=== PATIENT | male | born 1930 | race Caucasian/White ===

== ENCOUNTER 2017-02-22 17:00 | Inpatient (IN) | payer MEDICARE ==
[2017-02-22 18:21] LABS: Troponin I 0.185 ng/mL (< 0.028)
[2017-02-22 21:14] LABS: Troponin I 0.167 ng/mL (< 0.028)
[2017-02-23 00:12] LABS: Troponin I 0.182 ng/mL (< 0.028)
[2017-02-23] MEDS ORDERED: Ondansetron HCl/PF 4 MG/2 ML Vial IVP PRN (01:26)
[2017-02-23] MEDS ORDERED: Ondansetron ODT 4 MG TAB PO PRN (01:26)
[2017-02-23] MEDS ORDERED: cloNIDine 0.1 MG TAB PO PRN (01:26)
[2017-02-23] MEDS ORDERED: Acetaminophen 500 MG TAB PO PRN (01:26)
[2017-02-23] MEDS: Sodium Chloride 0.9% 1,000 ML IV SCH ×3 (02:26→23:36)
--- NOTE | 2017-02-23 03:06 | HP ---
DATE OF ADMISSION: 02/23/2017 PRIMARY CARE PHYSICIAN: Ray Dan DO CHIEF COMPLAINT: Passing out. HISTORY OF PRESENT ILLNESS: This is an 87-year-old male who presents to [facility] and transferred from [facility] after apparently sustaining a sync opal episode with altered mentation. The patient states that he had been outside working with pecans for the whole day, feeling somewhat dizzy over the last several days and some nausea. The patient s tates that his son came to visit him while at home and apparently was unable to respond appropriately to questions and his interaction seemed unusual to the son. The patient was nonresponsive, appearin g glazed over and nonverbal. The patient's symptoms lasted for approximately 30 minutes at which poi nt the patient's daughter decided to have EMS take the patient to [facility] for evaluat ion. The patient underwent general evaluation including CT imaging of the brain showing no acute pro cess. The patient's symptoms had essentially resolved prior to arrival to the emergency room. The p atient admits to some sensation of nausea as well as dizziness and unsteady gait over the last a l days. The patient states that he was recently started on antihypertensive medication within the la st 1-2 weeks by his primary care provider. The patient also states he was placed on pain reliever fo r back pain. The patient has noticed symptoms paralleling the initiation of the blood pressure medic ations. The patient states he had been off all medications over the last 1-2 years with recent resum ption of the medications including the antihypertensive regimen. The patient states he has also plac ed on ciprofloxacin for apparent blood in his urine and concern for possible cystitis. Patient denie s any recent travel history, sick contacts, but does admit to nausea, vomiting, and mild diarrhea. T he patient also admits to decrease oral intake of fluids over the last 24-48 hours. The patient jonathan es any specific chest pain other than pain associated with nausea and vomiting episodes. Patient den ies any specific unilateral weakness, facial droop, asymmetry, or visual disturbance. PAST MEDICAL HISTORY: 1. History of skin cancer. 2. History of acute cholecystitis, status post laparoscopic cholecystectomy. 3. Benign prostatic hyperplasia. 4. Chronic back pain. 5. Hypertension. PAST SURGICAL HISTORY: 1. Status post laparoscopic cholecystectomy. 2. Status post skin cancer excision from the lip. CURRENT MEDICATIONS: 1. Amlodipine/benazepril 5/20 mg 1 tab p.o. daily. 2. Ciprofloxacin 500 mg p.o. b.i.d. 3. Meloxicam 7.5 mg p.o. daily. 4. Flomax 0.4 mg p.o. daily. ALLERGIES: No known drug allergies. FAMILY HISTORY: Positive for hypertension. SOCIAL HISTORY: Patient resides in the [place], [place] area near family members. The patient lives independently, but is monitored by his children who live near the area. The patient denies any curre nt alcohol, tobacco, or illicit drug use. REVIEW OF SYSTEMS: The following complete review of systems was negative, unless otherwise mentioned in the HPI or below: CONSTITUTIONAL: Weight loss or gain, ability to conduct usual activities. SKIN: Rash, itching. EYES: Double vision, pain. ENT/MOUTH: Nose bleeding, neck stiffness, pain, tenderness. CARDIOVASCULAR: Palpitations, dyspnea on exertion, orthopnea. RESPIRATORY: Shortness of breath, wheezing, cough, hemoptysis, fever or night sweats. GASTROINTESTINAL: Poor appetite, abdominal pain, heartburn, nausea, vomiting, constipation, or diarr hea. GENITOURINARY: Urgency, frequency, dysuria, nocturia. MUSCULOSKELETAL: Pain, swelling. NEUROLOGIC/PSYCHIATRIC: Anxiety, depression. ALLERGY/IMMUNOLOGIC: Skin rash, bleeding tendency. PHYSICAL EXAMINATION: VITAL SIGNS: Currently, blood pressure 141/64, pulse 70, respiratory rate 18, temperature 98.3 degre es Fahrenheit, O2 saturation 96% on room air. GENERAL APPEARANCE: This is an 87-year-old male, alert and oriented x3, pleasant, conversa nt, responsive, in no acute distress. HEENT: Pupils are equal, round, and reactive to light and accommodation. Extraocular muscles are in tact. No scleral icterus, no conjunctival injection. Nares patent. OP is clear. Teeth in good rep air. NECK: Supple. No cervical adenopathy, no thyromegaly, no carotid bruits, no JVD appreciated. Cervi david spine with full active and passive range of motion. No meningeal signs appreciated. CHEST: Lungs are clear to auscultation bilaterally. CARDIOVASCULAR: S1, S2, without noted murmur. ABDOMEN: Rounded, soft, nontender, nondistended. Bowel sounds are positive in all four quadrants. There is no hepatosplenomegaly, no abdominal bruits, no rebound or guarding appreciated. EXTREMITIES: Warm and dry with good turgor. No clubbing, cyanosis, or asymmetric edema appreciated. Pulses palpable distally at the dorsalis pedis, posterior tibial, and popliteal arteries bilaterall y. Capillary refill less than 2 seconds. NEUROLOGIC: Cranial nerves II through XII are grossly intact. No focal or lateralizing signs apprec iated. PERTINENT LABORATORY AND X-RAY FINDINGS: Sodium 139, potassium 3.8, chloride 103, CO2 of 21, BUN 31, creatinine 1.77 with estimated GFR 37, previous estimated GFR on 04/02/2015 was 62. Glucose 149, ca lcium 9.0, total bilirubin 2.5, AST 17, ALT 19, alkaline phosphatase 53, total CK of 126. Troponin I ranged between 0.217-0.167, lipase 20. CBC showed a white blood cell count 8.1, hemoglobin 14.6, he matocrit 43, MCV 101, platelet count 128 with 71% neutrophils. Portable chest x-ray dated 02/22/2017 showed no acute cardiopulmonary process. EKG dated 02/22/2017 by my interpretation shows sinus mech anism with heart rates in the 90s. Normal R-wave progression noted in the precordial leads. Normal axis. No acute ST-T wave changes appreciated. ASSESSMENT AND PLAN: 1. Near syncope. The patient will be admitted to the telemetry unit. Exact etiology unclear, likel y multifactorial including dehydration and initiation of recent antihypertensive medication. Check o rthostatic vital signs q.4 hours x2. Hold home antihypertensives. Continue intravenous normal salin e at 100 mL per hour. Serial blood pressure monitoring. 2. Acute kidney injury on chronic kidney disease stage 2. We will continue intravenous normal salin e as outlined previously. Avoid nephrotoxic agents and contrast media. Repeat creatinine in the a.m . 3. Elevated troponin I. Suspect demand ischemia in the context of acute kidney injury. No specific evidence of acute coronary syndrome. Continue troponin I trending q.3 hours x2. 4. Hyperglycemia. Check A1c level in the a.m. No prior history of documented diabetes mellitus typ e 2. 5. Prophylaxis. Sequential compression devices while in bed. Pepcid 20 mg p.o. b.i.d. PT evaluati on in the a.m. 6. Code status is FULL. Surrogate medical decision maker is the patient's daughter,
[2017-02-23 03:47] LABS: Band 1 % (5-11); Hematocrit 38.6 % (42.0-52.0); Mean Platelet Volume 7.7 fL (7.4-10.4); Neutrophil 45 % (42-75); Reactive Lymphocytes 3 % (0-10); Red Blood Cell (RBC) Count 3.72 mill/uL (4.70-6.10); White Blood Cell (WBC) Count 6.5 thou/uL (4.8-10.8)
[2017-02-23 03:52] LABS: Troponin I 0.167 ng/mL (< 0.028)
[2017-02-23 04:03] LABS: Hemoglobin A1c 5.6 % (4.0-6.0)
[2017-02-23 04:04] LABS: Anion Gap 12 mmol/L (10-20); BUN (Urea Nitrogen) 27 mg/dL (8.4-25.7); Calc. Creatinine Clearance 52 mL/min (70-130); Calcium 8.4 mg/dL (7.8-10.44); Carbon Dioxide 25 mmol/L (23-31); Chloride 106 mmol/L (98-107); Estimated GFR-MDRD 56
[2017-02-23 06:49] LABS: Troponin I 0.163 ng/mL (< 0.028)
--- NOTE | 2017-02-23 08:31 | ULT ---
CAROTID ARTERIAL DOPPLER ULTRASOUND: DATE: 02/23/17. COMPARISON: None. HISTORY: Syncope, assess for carotid artery disease. TECHNIQUE: Multiplanar, chavez scale, sonographic imaging of the arterial structures of the neck obtained with col or flow and spectral analysis. FINDINGS: There is atherosclerotic plaque within the proximal ICA bilaterally as well as the distal aspect of t he left CCA. Antegrade blood flow and normal arterial waveforms are documented within the carotid an d vertebral system bilaterally. VESSEL PSV(CM/S) EDV(CM/S) Right CCA 105 9 Right ICA 121 17 Right ECA 231 9 Left CCA 141 18 Left ICA 75 12 Left ECA 160 13 ICA/CCA ratio is 1.2 on the right and 0.5 on the left. IMPRESSION: Elevated velocity within the left common carotid artery correlates with a moderate degree of stenosis (50-69%). This would be best assessed via followup CT angiogram of the neck. POS: [facility]
[2017-02-23] MEDS: Aspirin 81 mg Enteric Coated Tablet PO SCH (08:33)
[2017-02-23] MEDS: Tamsulosin HCl 0.4 MG CAP PO SCH (08:33)
[2017-02-23] MEDS: Famotidine 20 MG TAB PO SCH (08:33)
--- NOTE | 2017-02-23 14:07 | PDOC.EVN ---
Event Note - Event Note Event Note: Chart reviewed. Pt seen. Denies chest pain, shortness of breath. Awaiting 2D echo. No recurrence of syncope. Follow 2D echo report. Troponins trending down, likely due to renal failure. Monitor vital signs and telemetry.
[2017-02-23 16:08] VITALS: BMI 29.8
--- NOTE | 2017-02-24 09:21 | PDOC.PN ---
- Subjective Encounter Start Date: 02/24/17 Encounter Start Time: 09:20 Subjective: feels better. no chest pain.walked in hallways w/o dizziness - Objective Resuscitation Status: Resuscitation Status FULL:Full Resuscitation MAR Reviewed: Yes Vital Signs & Weight: Vital Signs (12 hours) Temp Pulse Resp BP BP BP Pulse Ox 02/24/17 08:00 97.6 F 86 18 160/75 H 97 02/24/17 04:00 98.0 F 50 L 18 162/71 H 95 02/23/17 23:50 98.1 F 58 L 18 160/67 H 97 Weight Admit Weight 187 lb 4.8 oz Weight 188 lb I&O: 02/23/17 02/24/17 02/25/17 06:59 06:59 06:59 Intake Total 590 2420 Output Total 425 2260 Balance 165 160 Result Diagrams: 02/23/17 03:14 02/23/17 03:14 Additional Labs: Laboratory Tests 02/22/17 02/22/17 02/22/17 13:01 17:38 20:42 Creatinine 1.77 H Hemoglobin A1c Troponin I 0.185 H 0.167 H TSH 3rd Generation 02/22/17 02/23/17 02/23/17 23:39 03:14 03:14 Creatinine 1.23 Hemoglobin A1c 5.6 Troponin I 0.182 H TSH 3rd Generation 02/23/17 02/23/17 02/23/17 03:14 03:14 06:05 Creatinine Hemoglobin A1c Troponin I 0.167 H 0.163 H TSH 3rd Generation 1.6482 Radiology Reviewed by me: Yes (ECHO -NL EF,NL valves.Carotid doppler-Mod Left Stenosis) Phys Exam - Physical Examination Constitutional: NAD HEENT: PERRLA, moist MMs, sclera anicteric, oral pharynx no lesions Neck: no nodes, no JVD, supple, full ROM Respiratory: no wheezing, no rales, no rhonchi, clear to auscultation bilateral Cardiovascular: RRR, no significant murmur, no rub, gallop Gastrointestinal: soft, non-tender, no distention, positive bowel sounds Musculoskeletal: no edema, pulses present, edema present Neurological: non-focal, normal sensation, moves all 4 limbs Psychiatric: normal affect, A&O x 3 Skin: no rash Dx/Plan (1) Near syncope Status: Acute (2) Orthostatic hypotension Code(s): I95.1 - ORTHOSTATIC HYPOTENSION Status: Acute (3) PREM (acute kidney injury) Code(s): N17.9 - ACUTE KIDNEY FAILURE, UNSPECIFIED Status: Resolved (4) Essential (primary) hypertension Code(s): I10 - ESSENTIAL (PRIMARY) HYPERTENSION Status: Chronic (5) BPH (benign prostatic hyperplasia) Code(s): N40.0 - BENIGN PROSTATIC HYPERPLASIA WITHOUT LOWER URINRY TRACT SYMP Status: Chronic (6) Troponin I above reference range Code(s): R74.8 - ABNORMAL LEVELS OF OTHER SERUM ENZYMES Status: Acute - Plan out of bed/ambulate, DVT proph w/SCDs Pt still orthostatic .High BP lying down.Stop IVF -: Will restart amlodipine & monitor. -: DC [place] in light of PREM.Cr improving.? CKD -: discussed w daughter on phone. -: If BP stable, may DC home later today * . recheck UA. Pt was on ABx as an OP for UTI. nOt restarted here. Review of Systems - Review of Systems Constitutional: negative: Fever, Chills, Sweats, Weakness, Malaise, Other Respiratory: negative: Cough, Dry, Shortness of Breath, Hemoptysis, SOB with Excertion, Pleuritic Pain, Sputum, Wheezing Cardiovascular: negative: Chest Pain, Palpitations, Orthopnea, Paroxysmal Noc. Dyspnea, Edema, Light Headedness, Other Gastrointestinal: negative: Nausea, Vomiting, Abdominal Pain, Diarrhea, Constipation, Melena, Hematochezia, Other Genitourinary: negative: Dysuria, Frequency, Incontinence, Hematuria, Retention , Other Musculoskeletal: negative: Neck Pain, Shoulder Pain, Arm Pain, Back Pain, Hand Pain, Leg Pain, Foot Pain, Other Neurological: negative: Weakness, Numbness, Incoordination, Change in Speech, Confusion, Seizures, Other - Medications/Allergies Allergies/Adverse Reactions: Allergies Allergy/AdvReac Type Severity Reaction Status Date / Time No Known Allergies Allergy Verified 02/22/17 21:43 Medications: Current Medications Acetaminophen (Tylenol) 1,000 mg PO Q6H PRN PRN Reason: Headache/Fever or Mild Pain Aspirin (Ecotrin) 81 mg PO DAILY [facility] Last Admin: 02/23/17 08:33 Dose: 81 mg Clonidine (Catapres) 0.1 mg PO Q4H PRN PRN Reason: Systolic BP > 180 Famotidine (Pepcid) 20 mg PO DAILY [facility] Last Admin: 02/23/17 08:33 Dose: 20 mg Ondansetron HCl (Zofran Odt) 4 mg PO Q6H PRN PRN Reason: Nausea/Vomiting Ondansetron HCl (Zofran) 4 mg IVP Q6H PRN PRN Reason: Nausea/Vomiting Sodium Chloride (Flush - Normal Saline) 10 ml IVF Q12HR [facility] Last Admin: 02/23/17 23:36 Dose: Not Given Sodium Chloride (Flush - Normal Saline) 10 ml IVF PRN PRN PRN Reason: Saline Flush Tamsulosin HCl (Flomax) 0.4 mg PO DAILY [facility] Last Admin: 02/23/17 08:33 Dose: 0.4 mg
[2017-02-24] MEDS: Famotidine 20 MG TAB PO SCH (09:34)
[2017-02-24] MEDS: Aspirin 81 mg Enteric Coated Tablet PO SCH (09:34)
[2017-02-24] MEDS: Tamsulosin HCl 0.4 MG CAP PO SCH (09:34)
[2017-02-24] MEDS ORDERED: Amlodipine 10 MG TAB PO SCH (11:00)
[2017-02-24 13:43] LABS: Bilirubin Negative (Negative); Blood, Urine Small (Negative); Glucose, Urine (Dipstick) Negative (Negative); Ketone, Urine Negative (Negative); Nitrite Negative (Negative); Protein, Urine (Dipstick) Negative (Neg-Trace)
[2017-02-24 13:46] LABS: Bacteria/HPF None Seen HPF (None Seen); Hyaline Casts/LPF 0-3 HYALINE CAST LPF (0-3 Hyaline); Squamous Epithelial None Seen HPF (0-3); WBC/HPF None Seen HPF (0-3)
[2017-02-24] MEDS: Sodium Chloride 0.9% 1,000 ML IV SCH (19:42)
--- NOTE | 2017-02-25 08:55 | PDOC.PN ---
- Subjective Encounter Start Date: 02/25/17 Encounter Start Time: 08:55 Subjective: feels better.no dizziness.no palpitations - Objective Resuscitation Status: Resuscitation Status FULL:Full Resuscitation MAR Reviewed: Yes Vital Signs & Weight: Vital Signs (12 hours) Temp Pulse Resp BP BP BP Pulse Ox 02/25/17 08:00 98.0 F 70 18 121/61 125/66 182/86 H 96 02/25/17 03:57 98.1 F 62 18 162/77 H 99 Weight Admit Weight 187 lb 4.8 oz Weight 181 lb I&O: 02/24/17 02/25/17 02/26/17 06:59 06:59 06:59 Intake Total 2420 1070 Output Total 2260 1275 Balance 160 -205 Result Diagrams: 02/23/17 03:14 02/23/17 03:14 Phys Exam - Physical Examination Constitutional: NAD HEENT: PERRLA, moist MMs, sclera anicteric, oral pharynx no lesions Neck: no nodes, no JVD, supple, full ROM Respiratory: no wheezing, no rales, no rhonchi, clear to auscultation bilateral Cardiovascular: RRR, no significant murmur, no rub, gallop Gastrointestinal: soft, non-tender, no distention, positive bowel sounds Musculoskeletal: no edema, pulses present Neurological: non-focal, normal sensation, moves all 4 limbs Psychiatric: normal affect, A&O x 3 Skin: no rash Dx/Plan (1) Near syncope Status: Acute (2) Orthostatic hypotension Code(s): I95.1 - ORTHOSTATIC HYPOTENSION Status: Acute (3) PREM (acute kidney injury) Code(s): N17.9 - ACUTE KIDNEY FAILURE, UNSPECIFIED Status: Resolved (4) Essential (primary) hypertension Code(s): I10 - ESSENTIAL (PRIMARY) HYPERTENSION Status: Chronic (5) BPH (benign prostatic hyperplasia) Code(s): N40.0 - BENIGN PROSTATIC HYPERPLASIA WITHOUT LOWER URINRY TRACT SYMP Status: Chronic (6) Troponin I above reference range Code(s): R74.8 - ABNORMAL LEVELS OF OTHER SERUM ENZYMES Status: Acute - Plan DVT proph w/SCDs BP better w amlodipine.Stop Benezapril for prem. -: pt instructed precautions about orthostatic changes in BP. -: OK to DC home w OP f/u w PCP. * . Review of Systems - Review of Systems Constitutional: negative: Fever, Chills, Sweats, Weakness, Malaise, Other Eyes: negative: Pain, Vision Change, Conjunctivae Inflammation, Eyelid Inflammation, Redness, Other Respiratory: negative: Cough, Dry, Shortness of Breath, Hemoptysis, SOB with Excertion, Pleuritic Pain, Sputum, Wheezing Cardiovascular: negative: Chest Pain, Palpitations, Orthopnea, Paroxysmal Noc. Dyspnea, Edema, Light Headedness, Other Gastrointestinal: negative: Nausea, Vomiting, Abdominal Pain, Diarrhea, Constipation, Melena, Hematochezia, Other Genitourinary: negative: Dysuria, Frequency, Incontinence, Hematuria, Retention , Other Musculoskeletal: negative: Neck Pain, Shoulder Pain, Arm Pain, Back Pain, Hand Pain, Leg Pain, Foot Pain, Other Neurological: negative: Weakness, Numbness, Incoordination, Change in Speech, Confusion, Seizures, Other - Medications/Allergies Allergies/Adverse Reactions: Allergies Allergy/AdvReac Type Severity Reaction Status Date / Time No Known Allergies Allergy Verified 02/22/17 21:43 Medications: Current Medications Acetaminophen (Tylenol) 1,000 mg PO Q6H PRN PRN Reason: Headache/Fever or Mild Pain Amlodipine Besylate (Norvasc) 10 mg PO DAILY [facility] Aspirin (Ecotrin) 81 mg PO DAILY [facility] Last Admin: 02/24/17 09:34 Dose: 81 mg Clonidine (Catapres) 0.1 mg PO Q4H PRN PRN Reason: Systolic BP > 180 Last Admin: 02/24/17 15:39 Dose: 0.1 mg Famotidine (Pepcid) 20 mg PO DAILY [facility] Last Admin: 02/24/17 09:34 Dose: 20 mg Ondansetron HCl (Zofran Odt) 4 mg PO Q6H PRN PRN Reason: Nausea/Vomiting Ondansetron HCl (Zofran) 4 mg IVP Q6H PRN PRN Reason: Nausea/Vomiting Sodium Chloride (Flush - Normal Saline) 10 ml IVF Q12HR [facility] Last Admin: 02/24/17 20:30 Dose: 10 ml Sodium Chloride (Flush - Normal Saline) 10 ml IVF PRN PRN PRN Reason: Saline Flush Tamsulosin HCl (Flomax) 0.4 mg PO DAILY [facility] Last Admin: 02/24/17 09:34 Dose: 0.4 mg
[2017-02-25] MEDS ORDERED: Amlodipine 10 MG TAB PO SCH (09:00)
[2017-02-25] MEDS: Tamsulosin HCl 0.4 MG CAP PO SCH (09:16)
[2017-02-25] MEDS: Aspirin 81 mg Enteric Coated Tablet PO SCH (09:16)
[2017-02-25] MEDS: Famotidine 20 MG TAB PO SCH (09:16)
[2017-02-25 12:19] VITALS: TEMP 98.7
[2017-02-25 12:21] VITALS: BP 118/57
--- NOTE | 2017-02-25 13:39 | DIS ---
DATE OF ADMISSION: 02/22/2017 DATE OF DISCHARGE: 02/25/2017 CONDITION AT THE TIME OF DISCHARGE: Stable and improved. PRIMARY CARE PHYSICIAN: Dr. Ray Dan. DISCHARGE MEDICATIONS: Amlodipine 10 mg daily, and Flomax 0.4 mg daily. The patient is taken off of his home medication of Benazepril. DISCHARGE DIAGNOSES: 1. Near syncope. 2. Orthostatic hypotension. 3. Benign prostatic hypertrophy. 4. Acute kidney insufficiency. 5. Borderline elevation of troponin. 6. Essential hypertension. PROCEDURES DONE IN THE HOSPITAL: Include; 1. Transthoracic echocardiogram, which shows preserved EF at 55% to 60% with mild dilation of left a trium. No valvular stenosis. 2. Carotid Doppler ultrasound. It shows moderate degree of stenosis 50% to 69% of the left common c arotid artery, otherwise unremarkable. HISTORY OF PRESENTING ILLNESS: Mr. No is a pleasant 87-year-old male with medical history of dodie ign prostatic hypertrophy as well as hypertension, who presented to the emergency room after sustaini ng a syncopal episode with altered mentation. He gave the history upon presentation of being started on new antihypertensive medication in the last 1-2 weeks. He was also on ciprofloxacin for possible cystitis. Upon presentation, he was otherwise hemodynamically stable and his EKG did not show any c hanges suggestive of acute coronary syndrome. He did have creatinine elevated at 1.77 with BUN of 31 upon presentation. His troponin ranged from 0.217-0.167. He was admitted for further evaluation. Please see admission history and physical for further details. HOSPITAL COURSE: The patient was started on IV fluids for his acute renal insufficiency and it has b een getting better. By the time of discharge, his creatinine has improved to 1.23. His cardiac enzy mes were trended and they trended downwards. His TSH was within normal limit. His hemoglobin A1c wa s checked, which was normal. Because of his being on antibiotic, urinalysis was done again, which did not show any evidence of inf ection. His antibiotics were discontinued. With regards to his syncope workup, he underwent transthoracic echocardiogram and carotid Doppler ult rasound. He did have moderate stenosis in the left common carotid artery, but otherwise his workup w as unremarkable. He however was found to have significant orthostatic hypotension. He has supine hy pertension with blood pressure systolic ranging from 180s to 190s which changed to systolic 120s in s itting position. Initially, his blood pressure medications were held, but later he was restarted on amlodipine. This helped control his supine hypertension and his systolic blood pressure was in 140s to 160s. He was still found to be orthostatic despite being treated with IV fluids. IV fluids were eventually stopped because of supine hypertension. At this time, the patient is asymptomatic and the cause of his syncope is orthostatic hypotension. Jerome avery has been advised about taking his blood pressure medications towards the end of the day. He is adv ised not to sleep supine during the daytime. He is advised to sit up slowly from a and try ma neuvers like fisting and crossing his legs when he is standing up to prevent sudden drop in his blood pressure. At this time, he understands this and he is cleared for discharge and he is hemodynamical ly stable. He was seen and examined prior to discharge. Discharge plan was discussed with the patient and his s on present in the room. They verbalized understanding. Please see hospitalist's progress note from today's date for further detail including [id number] interaction. Total time spent in the discharge 31 minutes.
== END 2017-02-25 14:18 | disposition home or self-care (01) | DRG 312 ==
LOC: ERS 17:00 → 2NO 18:00
PROVIDERS: ADMIT Internal Medicine; ATTEND Internal Medicine
DX: I95.1 Orthostatic hypotension (principal); N17.9 Acute kidney failure, unspecified; N40.0 Benign prostatic hyperplasia without lower urinary tract symptoms; R74.8 Abnormal levels of other serum enzymes; N18.2 Chronic kidney disease, stage 2 (mild); I12.9 Hypertensive chronic kidney disease with stage 1 through stage 4 chronic kidney disease, or unspecified chronic kidney disease; R73.9 Hyperglycemia, unspecified; E86.0 Dehydration
CPT/HCPCS: 36415; 80048; 81003; 81015; 83036; 84443; 84484; 85007; 85027; 93005; 93306; 93880; A4216; G8978-GP-CI; G8979-GP-CI; G8980-GP-CI

== ENCOUNTER 2017-08-08 12:29 | Emergency (ER) | payer MEDICARE | END 2017-08-08 15:04 | disposition home or self-care (01) | LOC: ERS 12:29 | DX: R55 Syncope and collapse (principal); R79.89 Other specified abnormal findings of blood chemistry; I10 Essential (primary) hypertension; Z87.891 Personal history of nicotine dependence; Z85.828 Personal history of other malignant neoplasm of skin; Z79.899 Other long term (current) drug therapy | CPT/HCPCS: 36415; 93005; 96360; 96361 ==

== ENCOUNTER 2018-05-31 12:56 | Emergency (ER) | payer MEDICARE ==
--- NOTE | 2018-05-31 15:39 | RAD ---
CHEST ONE VIEW: 06/28/18 INDICATION: Emergency Room examination for tingling within the toes and right hip. COMPARISON: Prior study dated 02/22/17. FINDINGS: The lungs are clear. Heart size is accentuated by exam technique. No definite acute osseous abnormali ty is evident. IMPRESSION: No acute cardiopulmonary abnormality. POS: [facility]
--- NOTE | 2018-05-31 16:04 | RAD ---
KUB AND UPRIGHT: HISTORY: Abdominal pain, more right-sided. FINDINGS: There is air in both small and large bowel, in a nonobstructed pattern. Surgical clips are seen in t he right upper quadrant. Arthritic changes of the spine are noted. No free air. IMPRESSION: No acute findings. POS: [facility]
== END 2018-05-31 15:50 | disposition home or self-care (01) ==
LOC: ERS 12:56
DX: G62.9 Polyneuropathy, unspecified (principal); K59.00 Constipation, unspecified; I10 Essential (primary) hypertension; Z87.891 Personal history of nicotine dependence
CPT/HCPCS: 71045; 74019

== ENCOUNTER 2018-10-17 09:19 | Outpatient (CLI) | payer MEDICARE ==
--- NOTE | 2018-10-17 11:21 | MRI ---
MRI CERVICAL SPINE WITHOUT CONTRAST: 10/17/2018 HISTORY: Bilateral foot pain, ataxia. COMPARISON: None. TECHNIQUE: Multiplanar, multisequence MR imaging of the cervical spine is obtained without contrast. FINDINGS: There is increased T2 signal posterior to the cerebellum, suggesting arachnoid cyst formation, incomp letely imaged on this examination. There is a sebaceous cyst associated with the skin and subcutaneous fat of the lower posterior neck r egion. The sagittal STIR imaging demonstrates edematous degenerative endplate change at C4-5. C2-3: Disc space narrowing, disc desiccation, and mild disc bulge present with mild central canal st enosis. Bilateral facet and uncovertebral osteophyte formation, left greater than right. Mild right and moderate left neural foraminal stenosis. C3-4: There is disc space narrowing and disc desiccation with a disc osteophyte complex causing effa cement of the ventral thecal sac and mild/moderate central canal stenosis. Bilateral facet and uncovertebral osteophyte formation noted, with severe bilateral neural foraminal stenosis. C4-5: Disc space narrowing and disc desiccation noted with disc bulge. There is severe central cali l stenosis with mass effect on the cervical cord. There is a suggestion of increased T2 signal within the cervical cord focally at C4-5, suggesting myelomalacia/cord edema. There is prominent ant erior osteophyte formation. There is prominent bilateral facet and uncovertebral osteophyte formation with severe bilateral neural foraminal stenosis. C5-6: Disc space narrowing, disc desiccation, and mild disc bulge present with mild/moderate central canal stenosis. Prominent bilateral facet and uncovertebral osteophyte formation with severe bilateral neural foraminal stenosis. C6-7: Disc osteophyte complex noted with mild/moderate central canal stenosis. Prominent bilateral facet and uncovertebral osteophyte formation with severe bilateral neural foraminal stenosis. C7-T1: Disc space narrowing and disc desiccation. Bilateral facet hypertrophy with mild bilateral n eural foraminal stenosis. No significant central canal stenosis. The flow void for the left vertebral artery is nonvisualized suggesting possible left vertebral arter y occlusion. 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 Dr. Jack made aware at approximately 3:00 PM 10/17/2018 CODE T Transcribed Date/Time: 10/17/2018 11:58 AM
--- NOTE | 2018-10-17 12:05 | MRI ---
MRI of the thoracic spine: 10/17/2018 COMPARISON: None HISTORY: Bilateral foot pain, ataxia TECHNIQUE: Multiplanar multisequence MR imaging of the thoracic spine performed without contrast FINDINGS: The sagittal STIR imaging demonstrates no focal area of osseous marrow edema. There is no anterolisthesis or retrolisthesis noted within the thoracic spine. C7-T1: There is disc space narrowing with disc desiccation and anterior osteophyte formation as well as bilateral facet hypertrophy. Mild right neural foraminal stenosis. No significant central canal or left neural foraminal stenosis. T1-2: Mild bilateral facet hypertrophy with mild right neural foraminal stenosis. No significant cent ral canal or left neural foraminal stenosis. Prominent anterior osteophyte formation noted. T2-3: No significant central canal or neural foraminal stenosis. T3-4: There is disc space narrowing with no significant central canal or neural foraminal stenosis. T4-5: Disc space narrowing. No central canal or neural foraminal stenosis T5-6: Disc space narrowing with no significant central canal or neural foraminal stenosis T6-7: There is a central disc herniation with partial effacement of the ventral thecal sac and mild c entral canal stenosis. No significant neural foraminal stenosis T7-8: Disc space narrowing with no significant central canal or neural foraminal stenosis T8-9: Very small central disc herniation partially effacing the ventral thecal sac with no associated central canal or neural foraminal stenosis. T9-10: No significant central canal or neural foraminal stenosis. Anterior osteophyte formation noted . T10-11: Anterior ossified formation and mild bilateral facet hypertrophy with mild left neural forami nal stenosis. No significant central canal or right neural foraminal stenosis T11-12: Anterior osteophyte formation with no significant central canal or neural foraminal stenosis T12-L1: No significant central canal or neural foraminal stenosis. There is no focal area of abnormal signal intensity identified within the thoracic cord. Incompletely imaged lobulated area of T2 hyperintensity seen posterior to the second rib on the right within the musculature measuring up to 2.1 cm, of doubtful clinical significance. If there are symptoms referable to this region, dedicated shoulder MRI may be beneficial. 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 No significant central canal or neural foraminal stenosis noted.
== END 2018-10-17 09:20 | disposition home or self-care (01) ==
LOC: BICMRI 09:19
PROVIDERS: ATTEND Psychiatry & Neurology Neurology
DX: R27.0 Ataxia, unspecified (principal); M47.814 Spondylosis without myelopathy or radiculopathy, thoracic region; M25.78 Osteophyte, vertebrae; M47.812 Spondylosis without myelopathy or radiculopathy, cervical region
CPT/HCPCS: 72141; 72146

== ENCOUNTER 2018-10-23 14:49 | Outpatient (CLI) | payer MEDICARE ==
--- NOTE | 2018-10-23 16:32 | RAD ---
CERVICAL SPINE AP AND LATERAL: HISTORY: Neck pain. COMPARISON: Cervical spine MRI from 10/17/2018. FINDINGS: There is severe degenerative disk space disease from C3-C7 with bridging anterior and posterior osteo phytes. Multilevel facet arthropathy. No significant translation with flexion or extension. IMPRESSION: No significant translation with flexion or extension. POS: CET
== END 2018-10-23 14:50 | disposition home or self-care (01) ==
LOC: TBSIIMAG 14:49
PROVIDERS: ATTEND Neurological Surgery
DX: M48.02 Spinal stenosis, cervical region (principal); G95.89 Other specified diseases of spinal cord
CPT/HCPCS: 72040